=== PATIENT | female | born 1995 | race Caucasian/White ===

== ENCOUNTER 2018-10-06 16:22 | Emergency (ER) | payer SELFPAY ==
[2018-10-06] MEDS ORDERED: Albuterol/Ipratropium Neb 3 ML AERS HHN ONE ×4 (16:31→17:36)
--- NOTE | 2018-10-06 17:07 | ED Physician Chart ---
ED Chief Complaint/HPI - Patient Information Date Seen:: 10/06/18 Time Seen:: 16:45 Chief Complaint:: shortness of breath History of Present Illness:: She develop shortness of breath about 1500 today while at work. No recent upper respiratory tract infection, cough or fever. Patient has had sharp intermittent lower abdominal pain right more than left last 2 days. She has no abdominal pain at present. She denies vaginal bleeding. Patient is 11 weeks . Allergies:: Allergies Allergy/AdvReac Type Severity Reaction Status Date / Time No Known Allergies Allergy Verified 10/06/18 16:28 Vitals:: Vital Signs - 8 hr 10/06/18 10/06/18 16:29 16:38 Temp 98.2 F HR 96 88 RR 17 23 BP 109/62 O2 Sat % 99 99 Historian:: Patient Review:: Nurse's Note Reviewed ED Review of Systems - Review of Systems General/Constitutional: No fever, No chills Skin: No skin lesions Head: No headache Eyes: No loss of vision ENT: No earache Neck: No neck pain Cardio Vascular: No chest pain Pulmonary: SOB GI: Nausea, No vomiting, No diarrhea, Pain G/U: No dysuria Supervisor Policy Change Clerks: No abnormal vaginal bleed Musculoskeletal: No bone or joint pain Endocrine: No polyuria Psychiatric: No prior psych history Hematopoietic: No bruising Allergic/Immuno: No urticaria Neurological: No syncope ED Past Medical History - Past Medical History Past Medical History: Other (childhood asthma) Family History: Diabetes Melitus Social History: Non Smoker, No Alcohol Surgical History: , other (2 prior C-sections) Psychiatricy History: None Medication: Reviewed Family Medical History - Family Member Mother History Unknown: Yes ED Physical Exam - Physical Examination General/Constitutional: Awake, Well-developed, well-nourished, Alert, No distress Head: Atraumatic Eyes: Lids, conjuctiva normal, PERRL Skin: Nl inspection, No rash ENMT: External ears, nose nl, TM canals nl, Nasal exam nl Neck: No nuchal rigidity Respiratory: Nl effort/Exclusion, Clear to Auscultation, No Wheeze/Rhonchi/Rales Other Respiratory comments:: Decreased inspiratory/expiratory sounds Cardio Vascular: RRR, No murmur, gallop, rubs, NL S1 S2 GI: No tenderness/rebounding/guarding, No organomegaly, No hernia, Nondistended , No mass/bruits, No McBurney tenderness Extremities: Normal digits & nails Neuro/Psych: No focal deficits Misc: No paraspinal tenderness ED Labs/Radiology/EKG Results - Lab Results Results: Pelvic ultrasound showed an 11 week 2 day normal intrauterine . ED Assessment - Assessment General Assessment: Patient throughout her emergency department stay did not appear short of breath. Her breath sounds however were decreased. Patient wished to have a pelvic ultrasound since she was having sharp intermittent lower abdominal pain right more than left. Patient's chest was re-auscultated at about 2030 and she still had decreased expiratory sounds but she declined a third breathing treatment. Patient does not seem to need a course of steroids because of shortness of breath appears mild. Patient given a prescription for an albuterol metered dose inhaler to use 2 puffs every 4 hours as necessary for shortness of breath. I gave her instructions on the proper use of an MDI. The etiology of the patient's sharp lower abdominal pain is uncertain. ED Septic Shock - . Is Septic Shock (SBP<90, OR Lactate>4 mmol\L) present?: No - <6hrs of presentation: Vital Signs: Vital Signs - 8 hr 10/06/18 10/06/18 16:29 16:38 Temp 98.2 F HR 96 88 RR 17 23 BP 109/62 O2 Sat % 99 99 ED Reassessment (Disposition) - Reassessment Reassessment Condition:: Improved - Diagnosis Diagnosis:: Reactive airway disease with exacerbation; normal 11 week 2 day intrauterine - Aftercare/Follow up Instructions Aftercare/Follow-Up Instructions:: Refer to Discharge Instructions - Patient Disposition Discharge/Transfer:: Home Condition at Disposition:: Stable, Improved
--- NOTE | 2018-10-07 09:03 | Diagnostic Imaging Report ---
OB ultrasound HISTORY: Pain Transvaginal sonographic technique was utilized. There is a single intrauterine gestation with a well-defined sac. Early fetus is seen. cardiac motion is noted (169 BPM). The crown-rump length 0.54 cm. This is consistent with sonographic age of 11 weeks 3 days +/- 1 week. No other abnormalities are seen within the pelvis. IMPRESSION: 1. Single intrauterine gestation with an approximate 11 weeks 3 days +/- 1 week
== END 2018-10-06 20:45 | disposition home or self-care (01) ==
LOC: ER 16:22
DX: O99.511 Diseases of the respiratory system complicating pregnancy, first trimester (principal); J45.901 Unspecified asthma with (acute) exacerbation; Z3A.11 11 weeks gestation of pregnancy; Z98.890 Other specified postprocedural states
CPT/HCPCS: 76801-TC; 94640